=== PATIENT | male | born 1975 | race Caucasian/White ===

== ENCOUNTER 2017-04-04 14:50 | Emergency (ER) | payer OTHER ==
[~2017-04-04] VITALS: Wt 104.3 kg
[~2017-04-04 14:50] MED LIST: ANAPROX DS550 MG PO; FLEXERIL10 MG PO; PHENERGAN25 M1 PO; VICODIN 500 MG-1 TAB PO; VICODIN ES 7501 TAB PO
[2017-04-04] MEDS ORDERED: LEVAQUIN750 M1 PO (16:31)
[2017-04-04] MEDS ORDERED: ROBITUSSIN AC 110 ML PO (16:32)
[2017-04-04] MEDS ORDERED: PROAIR HFA8.5 GM INH (16:33)
== END 2017-04-04 16:40 | disposition home or self-care (01) ==
LOC: ED 14:50
DX: J98.11 Atelectasis (principal); F17.200 Nicotine dependence, unspecified, uncomplicated

== ENCOUNTER 2017-04-12 02:27 | Emergency (ER) | payer OTHER ==
[~2017-04-12] VITALS: Ht 187.9 cm; Wt 113.4 kg
[~2017-04-12 02:27] MED LIST changes: +LEVAQUIN750 M1 PO; +PROAIR HFA8.5 GM INH; +ROBITUSSIN AC 110 ML PO
[2017-04-12 02:43] LABS: BASO # 0.1 10*3/uL (0.0-0.1); BASO % 0.7 % (0.0-1.0); EOS # 0.3 10*3/uL (0.0-0.4); EOS % 2.2 % (1.0-4.0); HEMOGLOBIN 16.1 g/dl (14.0-18.0); IG # 0.1 10*3/uL (0.0-0.1); LYMPH % 24.2 % (27.0-41.0); MEAN CELL VOLUME 83.5 fl (80.0-94.0); MEAN CORPUSCULAR HGB 28.6 pg (27.0-31.0); MEAN CORPUSCULAR HGB CONC 34.3 g/dl (33.0-37.0); MEAN PLATELET VOLUME 11.5 fl (9.6-12.3); MONO # 0.8 10*3/uL (0.1-1.0); MONO % 6.6 % (3.0-9.0); NEUT % 65.7 % (47.0-73.0); PLATELET COUNT AUTOMATED 420 10*3/uL (130-400); RED BLOOD COUNT 5.63 10*6/uL (4.50-5.90); RED CELL DISTRI WIDTH 14.6 % (0-14.5); WHITE BLOOD COUNT 12.2 10*3/uL (4.8-10.8)
[2017-04-12 03:05] LABS: PROTHROMBIN TIME 10.1 SECONDS (9.0-12.4)
[2017-04-12 03:11] LABS: ALKALINE PHOSPHATASE 114 U/L (45-117); BILIRUBIN, TOTAL 0.3 mg/dl (0.2-1.0); BUN 15 mg/dl (7-24); CARBON DIOXIDE 24 mmol/L (21-32); CHLORIDE 104 mmol/L (98-107); EST GLOM FILT AFRICAN AMERICAN > 60 ml/min; GLUCOSE 117 mg/dL (65-99); MAGNESIUM 2.1 mg/dL (1.5-2.1); POTASSIUM 3.9 mmol/L (3.5-5.1); SGOT/AST 20 IU/L (3-35); SGPT/ALT 48 U/L (12-78); SODIUM 142 mmol/L (136-145); TOTAL PROTEIN 7.8 gm/dL (6.4-8.2)
[2017-04-12 03:12] LABS: TROPONIN I < 0.015 ng/ml (<0.045)
[2017-04-12] MEDS ORDERED: PREDNISONE20 M1 PO (05:52)
[2017-04-12] MEDS ORDERED: KETOROLAC10 MG PO (05:52)
[2017-04-12] MEDS ORDERED: NORCO 5-325 TA1 EACH PO (05:52)
== END 2017-04-12 06:04 | disposition home or self-care (01) ==
LOC: ED 02:27
PROVIDERS: Emergency Medicine Emergency Medical Services
DX: J20.9 Acute bronchitis, unspecified (principal); R07.89 Other chest pain; Z79.899 Other long term (current) drug therapy

== ENCOUNTER → 2017-04-27 | Outpatient (CLI) | payer OTHER ==
[~2017-04-27] MED LIST changes: +KETOROLAC10 MG PO; +NORCO 5-325 TA1 EACH PO; +PREDNISONE20 M1 PO
== END | disposition home or self-care (01) ==
LOC: RAD 15:38
DX: J98.11 Atelectasis (principal); F17.200 Nicotine dependence, unspecified, uncomplicated

== ENCOUNTER 2018-01-28 12:19 | Emergency (ER) | payer OTHER ==
[~2018-01-28] VITALS: Ht 180.3 cm; Wt 99.8 kg
[2018-01-28] MEDS ORDERED: NAPROSYN500 MG PO (12:50)
[2018-01-28] MEDS ORDERED: CHLORZOXAZONE500 M2 PO (12:50)
== END 2018-01-28 14:13 | disposition home or self-care (01) ==
LOC: ED 12:19
DX: R07.81 Pleurodynia (principal); R03.0 Elevated blood-pressure reading, without diagnosis of hypertension; Z79.899 Other long term (current) drug therapy

== ENCOUNTER 2018-07-07 15:22 | Emergency (ER) | payer OTHER ==
[~2018-07-07] VITALS: Ht 180.3 cm; Wt 90.7 kg
[~2018-07-07 15:22] MED LIST changes: +CHLORZOXAZONE500 M2 PO; +NAPROSYN500 MG PO
[2018-07-07] MEDS ORDERED: ROBAXIN500 M1 PO (17:16)
[2018-07-07] MEDS ORDERED: NAPROSYN500 MG PO (17:16)
== END 2018-07-07 17:19 | disposition home or self-care (01) ==
LOC: ED 15:22
DX: S39.012A Strain of muscle, fascia and tendon of lower back, initial encounter (principal); S16.1XXA Strain of muscle, fascia and tendon at neck level, initial encounter; V49.88XA Car occupant (driver) (passenger) injured in other specified transport accidents, initial encounter; Y93.89 Activity, other specified; Y92.413 State road as the place of occurrence of the external cause; Y99.9 Unspecified external cause status

== ENCOUNTER 2018-09-14 06:54 | Emergency (ER) | payer OTHER ==
[~2018-09-14] VITALS: Ht 182.8 cm; Wt 104.3 kg
[~2018-09-14 06:54] MED LIST changes: +ROBAXIN500 M1 PO
== END 2018-09-14 07:35 | disposition home or self-care (01) ==
LOC: ED 06:54
DX: R41.82 Altered mental status, unspecified (principal); F12.90 Cannabis use, unspecified, uncomplicated; Z87.891 Personal history of nicotine dependence

== ENCOUNTER 2019-03-10 08:02 | Inpatient (IN) | payer OTHER ==
[2019-03-10] VITALS (12 sets, daily range): BP systolic 113–149; BP diastolic 67–97
[~2019-03-10] VITALS: Ht 180.3 cm; Wt 75.4 kg
--- NOTE | ~2019-03-10 | EKG ---
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
[2019-03-10 08:29] LABS: HEMATOCRIT 50.3 % (42.0-52.0); HEMOGLOBIN 16.8 g/dl (14.0-18.0); MEAN CELL VOLUME 87.6 fl (80.0-94.0); MEAN CORPUSCULAR HGB 29.3 pg (27.0-31.0); MEAN CORPUSCULAR HGB CONC 33.4 g/dl (33.0-37.0); MEAN PLATELET VOLUME 9.8 fl (9.6-12.3); PLATELET COUNT AUTOMATED 408 10*3/uL (130-400); RED BLOOD COUNT 5.74 10*6/uL (4.50-5.90); RED CELL DISTRI WIDTH 13.8 % (0-14.5); WHITE BLOOD COUNT 19.3 10*3/uL (4.8-10.8)
[2019-03-10 08:45] LABS: ALBUMIN 3.6 gm/dl (3.1-4.5); ALKALINE PHOSPHATASE 102 U/L (45-117); BUN 11 mg/dl (7-24); CHLORIDE 97 mmol/L (98-107); CREATININE 1.17 mg/dL (0.70-1.30); POTASSIUM 3.8 mmol/L (3.5-5.1); SGOT/AST 23 IU/L (3-35); SGPT/ALT 65 U/L (12-78); SODIUM 134 mmol/L (136-145); TOTAL PROTEIN 8.6 gm/dL (6.4-8.2)
[2019-03-10 08:49] LABS: TROPONIN I < 0.015 ng/ml (<0.045)
[2019-03-10 08:52] LABS: BASOPHILS 1 % (0-1); PLATELET SUFFICIENCY HIGH (NORMAL); TOTAL CELLS COUNTED 100 #CELLS
[2019-03-10 10:03] LABS: BILIRUBIN NEGATIVE (NEGATIVE); BLOOD NEGATIVE (NEGATIVE); CLARITY CLEAR (CLEAR); COLOR YELLOW (YELLOW); GLUCOSE 3+ (NEGATIVE); KETONE NEGATIVE (NEGATIVE); LEUKO ESTERASE NEGATIVE (NEGATIVE); NITRITE NEGATIVE (NEGATIVE)
[2019-03-10 10:09] LABS: BACTERIA TRACE; MUCOUS TRACE
[2019-03-10 10:55] LABS: URINE AMPHETAMINES < 1000 (1000ng/ml); URINE BARBITURATES < 200 (200ng/ml); URINE BENZODIAZEPINES < 200 (200ng/ml); URINE CANNABINOIDS (THC) < 50 (50ng/ml); URINE COCAINE > 300 (300ng/ml); URINE METHADONE < 300 (300ng/ml); URINE OPIATES < 300 (300ng/ml)
[2019-03-10 10:56] LABS: URINE PHENCYCLIDINE < 25 (25ng/ml)
[2019-03-10] MEDS ORDERED: PANTOPRAZOLE SO40 MG PO (11:56)
[2019-03-11] VITALS (7 sets, daily range): BP systolic 135–161; BP diastolic 74–100
[2019-03-11 06:11] LABS: ALBUMIN 2.5 gm/dl (3.1-4.5); ALKALINE PHOSPHATASE 79 U/L (45-117); BUN 15 mg/dl (7-24); CHLORIDE 111 mmol/L (98-107); CREATININE 0.89 mg/dL (0.70-1.30); SGOT/AST 16 IU/L (3-35); SGPT/ALT 44 U/L (12-78); SODIUM 142 mmol/L (136-145); TOTAL PROTEIN 6.4 gm/dL (6.4-8.2)
[2019-03-11 06:12] LABS: BASO # 0.1 10*3/uL (0.0-0.1); BASO % 0.7 % (0.0-1.0); EOS % 6.4 % (1.0-4.0); LYMPH % 13.2 % (27.0-41.0); MEAN CORPUSCULAR HGB 28.3 pg (27.0-31.0); MEAN CORPUSCULAR HGB CONC 32.5 g/dl (33.0-37.0); MEAN PLATELET VOLUME 10.4 fl (9.6-12.3); MONO # 1.1 10*3/uL (0.1-1.0); MONO % 7.7 % (3.0-9.0); NEUT # 10.6 10*3/uL (2.3-7.9); NEUT % 71.5 % (47.0-73.0); PLATELET COUNT AUTOMATED 298 10*3/uL (130-400); RED BLOOD COUNT 4.77 10*6/uL (4.50-5.90); RED CELL DISTRI WIDTH 13.5 % (0-14.5); WHITE BLOOD COUNT 14.8 10*3/uL (4.8-10.8)
[2019-03-11 06:39] LABS: HEMATOCRIT 41.5 % (42.0-52.0); HEMOGLOBIN 13.5 g/dl (14.0-18.0)
[2019-03-11 06:44] LABS: POTASSIUM 3.6 mmol/L (3.5-5.1)
[2019-03-12] VITALS: BP 148/93
[2019-03-12 01:19] VITALS: BP 152/84
[2019-03-12 06:43] LABS: BASO # 0.1 10*3/uL (0.0-0.1); BASO % 0.7 % (0.0-1.0); EOS # 1.5 10*3/uL (0.0-0.4); EOS % 11.9 % (1.0-4.0); HEMATOCRIT 41.9 % (42.0-52.0); HEMOGLOBIN 13.4 g/dl (14.0-18.0); LYMPH # 2.3 10*3/uL (1.3-4.4); MEAN CELL VOLUME 88.8 fl (80.0-94.0); MEAN CORPUSCULAR HGB 28.4 pg (27.0-31.0); MONO # 0.8 10*3/uL (0.1-1.0); MONO % 6.8 % (3.0-9.0); NEUT # 7.5 10*3/uL (2.3-7.9); PLATELET COUNT AUTOMATED 328 10*3/uL (130-400); RED BLOOD COUNT 4.72 10*6/uL (4.50-5.90); RED CELL DISTRI WIDTH 13.6 % (0-14.5); WHITE BLOOD COUNT 12.2 10*3/uL (4.8-10.8)
[2019-03-12 07:02] LABS: BUN 10 mg/dl (7-24); CHLORIDE 108 mmol/L (98-107); CREATININE 0.87 mg/dL (0.70-1.30); SODIUM 142 mmol/L (136-145)
[2019-03-12 08:00] VITALS: BP 146/83
[2019-03-12 11:37] VITALS: BP 138/78
[2019-03-12 16:00] VITALS: BP 140/96
[2019-03-12 20:00] VITALS: BP 170/92
[2019-03-13] VITALS: BP 158/86
[2019-03-13 06:42] LABS: BASO # 0.1 10*3/uL (0.0-0.1); BASO % 0.9 % (0.0-1.0); EOS # 1.5 10*3/uL (0.0-0.4); EOS % 13.2 % (1.0-4.0); HEMATOCRIT 40.6 % (42.0-52.0); HEMOGLOBIN 13.1 g/dl (14.0-18.0); LYMPH # 2.9 10*3/uL (1.3-4.4); MEAN CELL VOLUME 87.1 fl (80.0-94.0); MEAN CORPUSCULAR HGB 28.1 pg (27.0-31.0); MEAN CORPUSCULAR HGB CONC 32.3 g/dl (33.0-37.0); MEAN PLATELET VOLUME 10.1 fl (9.6-12.3); MONO # 0.9 10*3/uL (0.1-1.0); MONO % 7.5 % (3.0-9.0); NEUT # 6.1 10*3/uL (2.3-7.9); NEUT % 51.9 % (47.0-73.0); PLATELET COUNT AUTOMATED 344 10*3/uL (130-400); RED BLOOD COUNT 4.66 10*6/uL (4.50-5.90); RED CELL DISTRI WIDTH 13.6 % (0-14.5); WHITE BLOOD COUNT 11.7 10*3/uL (4.8-10.8)
[2019-03-13 07:09] LABS: CHLORIDE 107 mmol/L (98-107); SODIUM 140 mmol/L (136-145)
[2019-03-13 07:26] LABS: BUN 10 mg/dl (7-24); CREATININE 0.83 mg/dL (0.70-1.30)
[2019-03-13 07:29] LABS: POTASSIUM 3.7 mmol/L (3.5-5.1)
[2019-03-13 08:00] VITALS: BP 150/90
[2019-03-13 12:00] VITALS: BP 150/90
[2019-03-13 16:00] VITALS: BP 122/67
[2019-03-13 20:00] VITALS: BP 157/90
[2019-03-14] VITALS: BP 157/92
[2019-03-14 08:00] VITALS: BP 150/99
[2019-03-14 12:00] VITALS: BP 155/97
[2019-03-14 16:00] VITALS: BP 151/90
[2019-03-14 20:00] VITALS: BP 146/79
[2019-03-15] VITALS: BP 133/82
[2019-03-15 07:06] LABS: HEMATOCRIT 45.2 % (42.0-52.0); HEMOGLOBIN 14.7 g/dl (14.0-18.0); MEAN CELL VOLUME 85.8 fl (80.0-94.0); MEAN CORPUSCULAR HGB 27.9 pg (27.0-31.0); MEAN CORPUSCULAR HGB CONC 32.5 g/dl (33.0-37.0); MEAN PLATELET VOLUME 9.7 fl (9.6-12.3); PLATELET COUNT AUTOMATED 378 10*3/uL (130-400); RED BLOOD COUNT 5.27 10*6/uL (4.50-5.90); RED CELL DISTRI WIDTH 13.7 % (0-14.5)
[2019-03-15 07:21] LABS: BUN 12 mg/dl (7-24); CHLORIDE 103 mmol/L (98-107); POTASSIUM 3.8 mmol/L (3.5-5.1); SODIUM 139 mmol/L (136-145)
[2019-03-15 08:00] VITALS: BP 138/74
[2019-03-15 08:01] LABS: BASOPHILS 2 % (0-1); PLATELET SUFFICIENCY NORMAL (NORMAL); TOTAL CELLS COUNTED 100 #CELLS
[2019-03-15] MEDS ORDERED: SEPTDS PO (11:32)
[2019-03-15 12:00] VITALS: BP 132/77
[2019-03-15 16:00] VITALS: BP 150/89
[2019-03-15 20:00] VITALS: BP 150/86
[2019-03-16] VITALS: BP 146/92
[2019-03-16 08:00] VITALS: BP 134/66
[2019-03-16 09:21] VITALS: BP 134/66
[2019-03-16 12:00] VITALS: BP 111/53
[2019-03-16 15:51] VITALS: BP 127/67
[2019-03-16 20:00] VITALS: BP 133/76
[2019-03-17] VITALS: BP 137/58
[2019-03-17 08:00] VITALS: BP 120/64
[2019-03-17 12:00] VITALS: BP 146/86
[2019-03-17 15:41] VITALS: BP 135/60
[2019-03-17 20:00] VITALS: BP 131/68
[2019-03-18] VITALS: BP 154/83
[2019-03-18 05:48] LABS: BUN 16 mg/dl (7-24)
[2019-03-18 08:00] VITALS: BP 140/81
[2019-03-18 12:00] VITALS: BP 123/67
[2019-03-18 16:00] VITALS: BP 144/61
[2019-03-18 20:00] VITALS: BP 142/63
[2019-03-19] VITALS: BP 147/69
[2019-03-19 07:39] LABS: HEMATOCRIT 44.3 % (42.0-52.0); HEMOGLOBIN 14.4 g/dl (14.0-18.0); MEAN CELL VOLUME 87.5 fl (80.0-94.0); MEAN CORPUSCULAR HGB 28.5 pg (27.0-31.0); MEAN CORPUSCULAR HGB CONC 32.5 g/dl (33.0-37.0); MEAN PLATELET VOLUME 9.6 fl (9.6-12.3); PLATELET COUNT AUTOMATED 344 10*3/uL (130-400); RED BLOOD COUNT 5.06 10*6/uL (4.50-5.90); RED CELL DISTRI WIDTH 14.3 % (0-14.5); WHITE BLOOD COUNT 13.4 10*3/uL (4.8-10.8)
[2019-03-19 08:00] VITALS: BP 132/68
[2019-03-19 08:26] LABS: BASOPHILS 1 % (0-1); PLATELET SUFFICIENCY NORMAL (NORMAL); TOTAL CELLS COUNTED 100 #CELLS
[2019-03-19 12:00] VITALS: BP 161/49
[2019-03-19 16:00] VITALS: BP 140/69
[2019-03-19 20:00] VITALS: BP 146/62
[2019-03-20] VITALS: BP 142/61
[2019-03-20 08:00] VITALS: BP 141/74
[2019-03-20 12:00] VITALS: BP 132/58
[2019-03-20 16:00] VITALS: BP 135/68
[2019-03-20 20:00] VITALS: BP 140/82
[2019-03-21] VITALS: BP 134/82
[2019-03-21 06:12] LABS: BUN 16 mg/dl (7-24); CREATININE 0.97 mg/dL (0.70-1.30)
[2019-03-21 06:14] LABS: VANCOMYCIN TROUGH 15.4 ug/mL (10-20)
[2019-03-21 08:00] VITALS: BP 128/67
[2019-03-21 12:00] VITALS: BP 132/70
[2019-03-21 16:00] VITALS: BP 148/85
[2019-03-21 20:00] VITALS: BP 146/77
[2019-03-22] VITALS: BP 133/65
[2019-03-22 08:00] VITALS: BP 146/77
[2019-03-22 10:52] LABS: BASO # 0.1 10*3/uL (0.0-0.1); BASO % 1.1 % (0.0-1.0); EOS # 0.5 10*3/uL (0.0-0.4); EOS % 4.2 % (1.0-4.0); HEMATOCRIT 44.5 % (42.0-52.0); HEMOGLOBIN 14.3 g/dl (14.0-18.0); LYMPH # 2.1 10*3/uL (1.3-4.4); MEAN CELL VOLUME 87.8 fl (80.0-94.0); MEAN CORPUSCULAR HGB 28.2 pg (27.0-31.0); MEAN CORPUSCULAR HGB CONC 32.1 g/dl (33.0-37.0); MEAN PLATELET VOLUME 9.4 fl (9.6-12.3); MONO # 0.9 10*3/uL (0.1-1.0); MONO % 7.4 % (3.0-9.0); NEUT # 8.4 10*3/uL (2.3-7.9); NEUT % 68.4 % (47.0-73.0); PLATELET COUNT AUTOMATED 286 10*3/uL (130-400); RED BLOOD COUNT 5.07 10*6/uL (4.50-5.90); RED CELL DISTRI WIDTH 14.6 % (0-14.5); WHITE BLOOD COUNT 12.3 10*3/uL (4.8-10.8)
[2019-03-22 11:04] LABS: BUN 16 mg/dl (7-24); CHLORIDE 107 mmol/L (98-107); CREATININE 0.94 mg/dL (0.70-1.30); POTASSIUM 4.1 mmol/L (3.5-5.1); SODIUM 142 mmol/L (136-145)
[2019-03-22 12:00] VITALS: BP 131/63
[2019-03-22 16:00] VITALS: BP 151/94
[2019-03-22 20:00] VITALS: BP 141/70
[2019-03-23] VITALS: BP 155/71
[2019-03-23 08:00] VITALS: BP 118/73
[2019-03-23 13:50] VITALS: BP 140/66
== END 2019-03-23 15:38 | disposition home health service (06) | DRG 854 ==
LOC: ED 08:02 → 4E 10:20 → EDHOLD 10:20 → 4E 10:23
PROVIDERS: Emergency Medicine; Internal Medicine; ADMIT Internal Medicine Nephrology
PROC: 0J9D0ZZ Drainage of Right Upper Arm Subcutaneous Tissue and Fascia, Open Approach (ICD-10-PCS; principal; 2019-03-10)
DX: A41.9 Sepsis, unspecified organism (principal); L02.213 Cutaneous abscess of chest wall; E87.1 Hypo-osmolality and hyponatremia; L02.413 Cutaneous abscess of right upper limb; L03.113 Cellulitis of right upper limb; F41.9 Anxiety disorder, unspecified; E87.8 Other disorders of electrolyte and fluid balance, not elsewhere classified; R73.9 Hyperglycemia, unspecified; F14.10 Cocaine abuse, uncomplicated; A49.02 Methicillin resistant Staphylococcus aureus infection, unspecified site; K21.9 Gastro-esophageal reflux disease without esophagitis; F17.210 Nicotine dependence, cigarettes, uncomplicated; Z79.899 Other long term (current) drug therapy

== ENCOUNTER 2021-01-17 17:16 | Emergency (ER) | payer OTHER ==
[~2021-01-17] VITALS: Ht 180.3 cm; Wt 86.2 kg
[~2021-01-17 17:16] MED LIST changes: +PANTOPRAZOLE SO40 MG PO; +SEPTDS PO
[2021-01-17] MEDS ORDERED: AMOXICILLIN500 M3 PO (17:35)
[2021-01-17] MEDS ORDERED: TYLENOL325 M1 PO (17:35)
[2021-01-17] MEDS ORDERED: NAPROXEN250 MG PO (17:35)
== END 2021-01-17 17:58 | disposition home or self-care (01) ==
LOC: ED 17:16
DX: K02.9 Dental caries, unspecified (principal); K08.89 Other specified disorders of teeth and supporting structures; K21.9 Gastro-esophageal reflux disease without esophagitis; Z79.899 Other long term (current) drug therapy

== ENCOUNTER 2021-09-18 23:39 | Emergency (ER) | payer OTHER ==
[~2021-09-18] VITALS: Ht 180.3 cm; Wt 93.9 kg
[~2021-09-18 23:39] MED LIST changes: +AMOXICILLIN500 M3 PO; +NAPROXEN250 MG PO; +TYLENOL325 M1 PO
[2021-09-19 00:06] LABS: BILIRUBIN Negative (Negative); BLOOD Negative (Negative); CLARITY Clear (Clear); COLOR Yellow (Yellow); GLUCOSE Negative (Negative); KETONE Negative (Negative); LEUKO ESTERASE Negative (Negative); NITRITE Negative (Negative); PH 7.5 (4.5-8.0)
[2021-09-19 00:21] LABS: URINE METHADONE < 300 (300ng/ml)
[2021-09-19 00:21] LABS: ALBUMIN 3.6 gm/dl (3.1-4.5); ALKALINE PHOSPHATASE 114 U/L (45-117); BUN 19 mg/dl (7-24); CHLORIDE 105 mmol/L (98-107); CREATININE 1.24 mg/dL (0.70-1.30); POTASSIUM 4.5 mmol/L (3.5-5.1); SGOT/AST 100 IU/L (3-35); SGPT/ALT 317 U/L (12-78); SODIUM 136 mmol/L (136-145); TOTAL PROTEIN 8.2 gm/dL (6.4-8.2)
[2021-09-19 00:26] LABS: URINE AMPHETAMINES < 1000 (1000ng/ml); URINE BARBITURATES < 200 (200ng/ml); URINE BENZODIAZEPINES < 200 (200ng/ml); URINE CANNABINOIDS (THC) > 50 (50ng/ml); URINE COCAINE < 300 (300ng/ml); URINE OPIATES < 300 (300ng/ml)
[2021-09-19 00:27] LABS: BASO # 0.1 10*3/uL (0.0-0.1); EOS # 0.2 10*3/uL (0.0-0.4); EOS % 2.8 % (1.0-4.0); HEMATOCRIT 47.1 % (42.0-52.0); LYMPH # 2.1 10*3/uL (1.3-4.4); LYMPH % 25.7 % (27.0-41.0); MEAN CELL VOLUME 87.1 fl (80.0-94.0); MEAN CORPUSCULAR HGB 28.5 pg (27.0-31.0); MEAN CORPUSCULAR HGB CONC 32.7 g/dl (33.0-37.0); MEAN PLATELET VOLUME 9.8 fl (9.6-12.3); MONO # 0.9 10*3/uL (0.1-1.0); MONO % 10.9 % (3.0-9.0); NEUT # 4.8 10*3/uL (2.3-7.9); NEUT % 58.4 % (47.0-73.0); PLATELET COUNT AUTOMATED 306 10*3/uL (130-400); RED BLOOD COUNT 5.41 10*6/uL (4.50-5.90); WHITE BLOOD COUNT 8.2 10*3/uL (4.8-10.8)
[2021-09-19 00:27] LABS: RBC 0-2 rbc/hpf (0-2); URINE PHENCYCLIDINE < 25 (25ng/ml); WBC 0-2 wbc/hpf (0-5)
== END 2021-09-19 01:23 | disposition home or self-care (01) ==
LOC: ED 23:39
PROVIDERS: Internal Medicine
DX: R06.00 Dyspnea, unspecified (principal); R79.89 Other specified abnormal findings of blood chemistry

== ENCOUNTER 2021-10-11 14:16 | Emergency (ER) | payer OTHER ==
[~2021-10-11] VITALS: Wt 95.3 kg
== END 2021-10-11 17:03 | disposition home or self-care (01) ==
LOC: ED 14:16
DX: F19.10 Other psychoactive substance abuse, uncomplicated (principal); K21.9 Gastro-esophageal reflux disease without esophagitis; F17.200 Nicotine dependence, unspecified, uncomplicated; Z79.899 Other long term (current) drug therapy

== ENCOUNTER → 2022-01-22 | Outpatient (CLI) | payer OTHER ==
[2022-01-22 19:31] LABS: BILIRUBIN Negative (Negative); BLOOD Negative (Negative); CLARITY Clear (Clear); COLOR Yellow (Yellow); GLUCOSE Negative (Negative); KETONE Trace (Negative); LEUKO ESTERASE Negative (Negative); NITRITE Negative (Negative); SPECIFIC GRAVITY 1.025 (1.001-1.030); UROBILINOGEN 0.2 E.U./dl (0.0-1.0)
[2022-01-22 19:48] LABS: WBC 0-2 wbc/hpf (0-5)
[2022-01-22 19:49] LABS: BACTERIA TRACE; EPITHELIAL CELLS 0-2
== END | disposition home or self-care (01) ==
LOC: LAB 18:43
PROVIDERS: ATTEND Emergency Medicine
DX: N30.01 Acute cystitis with hematuria (principal)

== ENCOUNTER 2022-04-24 12:26 | Emergency (ER) | payer OTHER ==
[~2022-04-24] VITALS: Ht 180.3 cm; Wt 99.8 kg
[2022-04-24 13:26] LABS: BASO # 0.1 10*3/uL (0.0-0.1); BASO % 1.3 % (0.0-1.0); EOS # 0.3 10*3/uL (0.0-0.4); EOS % 4.4 % (1.0-4.0); HEMATOCRIT 45.6 % (42.0-52.0); LYMPH # 1.7 10*3/uL (1.3-4.4); LYMPH % 21.3 % (27.0-41.0); MEAN CELL VOLUME 86.4 fl (80.0-94.0); MEAN CORPUSCULAR HGB 28.4 pg (27.0-31.0); MEAN CORPUSCULAR HGB CONC 32.9 g/dl (33.0-37.0); MEAN PLATELET VOLUME 9.9 fl (9.6-12.3); MONO # 0.7 10*3/uL (0.1-1.0); MONO % 9.1 % (3.0-9.0); NEUT # 4.9 10*3/uL (2.3-7.9); NEUT % 62.9 % (47.0-73.0); PLATELET COUNT AUTOMATED 265 10*3/uL (130-400); RED BLOOD COUNT 5.28 10*6/uL (4.50-5.90); RED CELL DISTRI WIDTH 13.7 % (0-14.5); WHITE BLOOD COUNT 7.8 10*3/uL (4.8-10.8)
[2022-04-24 13:42] LABS: ALKALINE PHOSPHATASE 79 U/L (45-117); BUN 16 mg/dl (7-24); CHLORIDE 110 mmol/L (98-107); CREATININE 0.96 mg/dL (0.70-1.30); SGOT/AST 94 IU/L (3-35); SGPT/ALT 248 U/L (12-78); SODIUM 140 mmol/L (136-145); TOTAL PROTEIN 6.7 gm/dL (6.4-8.2)
[2022-04-24 13:45] LABS: POTASSIUM 4.3 mmol/L (3.5-5.1)
[2022-04-24 13:57] LABS: BILIRUBIN Negative (Negative); BLOOD Negative (Negative); CLARITY Clear (Clear); COLOR Yellow (Yellow); GLUCOSE Negative (Negative); KETONE Negative (Negative); LEUKO ESTERASE Negative (Negative); NITRITE Negative (Negative); UROBILINOGEN 0.2 E.U./dl (0.0-1.0)
[2022-04-24] MEDS ORDERED: ULTRAM50 MG PO (14:10)
[2022-04-24 14:13] LABS: BACTERIA TRACE; WBC 0-2 wbc/hpf (0-5)
[2022-04-24] MEDS ORDERED: CLINDAMYCIN HC300 MG PO (14:19)
== END 2022-04-24 14:30 | disposition home or self-care (01) ==
LOC: ED 12:26
PROVIDERS: Emergency Medicine
DX: R51.9 Headache, unspecified (principal); R10.32 Left lower quadrant pain; Z79.899 Other long term (current) drug therapy

== ENCOUNTER → 2022-11-08 | Outpatient (CLI) | payer OTHER ==
[~2022-11-08] MED LIST changes: +AMLODIPINE BESY10 MG PO; +CLINDAMYCIN HC300 MG PO; +DALVANCE500 MG IV; +DULOXETINE HCL30 MG PO; +OMEPRAZOLE40 MG PO; +ULTRAM50 MG PO
[2022-11-09 08:08] LABS: AFP TUMOR MARKER 7.8 ng/mL (0.0-6.9)
[2022-11-09 20:07] LABS: HCV LOG10 7.212 (.); HEPATITIS C QNT See Final Results IU/mL (.)
[2022-11-09 21:06] LABS: HCV LOG10 7.243 (.); HCV RNA (INTERNATION UNIT) 17500000 IU/mL (.); HEPATITIS C QUANTITATION See Final Results IU/mL (.)
== END | disposition home or self-care (01) ==
LOC: LAB 15:53
PROVIDERS: ATTEND Internal Medicine
DX: M54.41 Lumbago with sciatica, right side (principal); R76.8 Other specified abnormal immunological findings in serum

== ENCOUNTER 2023-09-06 06:09 | Emergency (ER) | payer OTHER ==
[~2023-09-06] VITALS: Ht 180.3 cm; Wt 99.8 kg
[2023-09-06] MEDS ORDERED: VIBRAMYCIN100 MG PO (06:47)
== END 2023-09-06 07:21 | disposition home or self-care (01) ==
LOC: ED 06:09
DX: L02.414 Cutaneous abscess of left upper limb (principal); F41.9 Anxiety disorder, unspecified; F31.9 Bipolar disorder, unspecified; Z98.890 Other specified postprocedural states; F14.10 Cocaine abuse, uncomplicated; F12.10 Cannabis abuse, uncomplicated

== ENCOUNTER 2023-10-17 20:49 | Emergency (ER) | payer OTHER ==
[~2023-10-17] VITALS: Ht 180.3 cm; Wt 102.1 kg
[~2023-10-17 20:49] MED LIST changes: +VIBRAMYCIN100 MG PO
[2023-10-17] MEDS ORDERED: POLYMYXIN B/TRI10 M1 OPH (23:57)
== END 2023-10-18 00:21 | disposition home or self-care (01) ==
LOC: ED 20:49
DX: S00.212A Abrasion of left eyelid and periocular area, initial encounter (principal); K21.9 Gastro-esophageal reflux disease without esophagitis; F41.9 Anxiety disorder, unspecified; F31.9 Bipolar disorder, unspecified; Z98.890 Other specified postprocedural states; F14.10 Cocaine abuse, uncomplicated; F12.10 Cannabis abuse, uncomplicated; F11.10 Opioid abuse, uncomplicated; X58.XXXA Exposure to other specified factors, initial encounter; Y93.89 Activity, other specified; Y92.89 Other specified places as the place of occurrence of the external cause; Y99.8 Other external cause status

== ENCOUNTER 2024-10-21 02:39 | Emergency (ER) | payer OTHER ==
[~2024-10-21] VITALS: Ht 180.3 cm; Wt 105.3 kg
[~2024-10-21 02:39] MED LIST changes: +POLYMYXIN B/TRI10 M1 OPH
[2024-10-21] MEDS ORDERED: Ondansetron Hydrochloride 4 MG TAB SL ONE (03:45)
[2024-10-21] MEDS ORDERED: ACETAMINOPHEN 325 MG TAB PO ONE (03:45)
[2024-10-21] MEDS ORDERED: Ondansetron4 MG SL (03:46)
== END 2024-10-21 03:43 | disposition home or self-care (01) ==
LOC: ED 02:39
DX: J10.1 Influenza due to other identified influenza virus with other respiratory manifestations (principal); Z20.822 Contact with and (suspected) exposure to COVID-19; K21.9 Gastro-esophageal reflux disease without esophagitis; F41.9 Anxiety disorder, unspecified; F31.9 Bipolar disorder, unspecified; F14.10 Cocaine abuse, uncomplicated; F12.10 Cannabis abuse, uncomplicated; F11.10 Opioid abuse, uncomplicated; F17.200 Nicotine dependence, unspecified, uncomplicated; Z98.890 Other specified postprocedural states

== ENCOUNTER 2024-11-04 18:18 | Emergency (ER) | payer OTHER ==
[~2024-11-04] VITALS: Ht 180.3 cm; Wt 93.0 kg
[~2024-11-04 18:18] MED LIST changes: +CEFDINIR300 MG PO; +LINEZOLID600 MG PO; +Ondansetron4 MG PO; +Ondansetron4 MG SL; +TAMIFLU 75MG CA75 MG PO; +TOPCARE OMEPRAZ20 MG PO
== END 2024-11-04 19:35 | disposition home or self-care (01) ==
LOC: ED 18:18
DX: Z00.00 Encounter for general adult medical examination without abnormal findings (principal); F41.9 Anxiety disorder, unspecified; F31.9 Bipolar disorder, unspecified; F14.10 Cocaine abuse, uncomplicated; F12.10 Cannabis abuse, uncomplicated; F11.10 Opioid abuse, uncomplicated; F17.200 Nicotine dependence, unspecified, uncomplicated; Z98.890 Other specified postprocedural states

== ENCOUNTER 2025-02-13 21:03 | Emergency (ER) | payer OTHER ==
[~2025-02-13] VITALS: Ht 182.9 cm; Wt 104.3 kg
== END 2025-02-13 21:46 | disposition left against medical advice (07) ==
LOC: ED 21:03
DX: S00.93XA Contusion of unspecified part of head, initial encounter (principal); S00.81XA Abrasion of other part of head, initial encounter; F14.10 Cocaine abuse, uncomplicated; F17.200 Nicotine dependence, unspecified, uncomplicated; W18.39XA Other fall on same level, initial encounter; Y93.89 Activity, other specified; Y92.89 Other specified places as the place of occurrence of the external cause; Y99.8 Other external cause status; Z79.899 Other long term (current) drug therapy